=== PATIENT | female | born 1990 | race African-American/Black ===

== ENCOUNTER 2020-07-10 12:50 | Emergency (ER) | payer MEDICAID ==
[~2020-07-10] VITALS: Ht 154.9 cm; Wt 97.0 kg
[2020-07-10] MEDS ORDERED: PANTOPRAZOLE 40MG DR TABLET PO ONE (14:30)
[2020-07-10 16:13] LABS: EOSINOPHILS % 1.3 % (0.0-5.0); HEMOGLOBIN. 14.3 g/dL (12.0-16.0); LYMPHOCYTES % 35.1 % (20.0-50.0); MEAN CORPUSCULAR HEMOGLOBIN 28.8 pg (28.0-32.0); MEAN CORPUSCULAR VOLUME 86.4 fL (81.0-99.0); MEAN PLATELET VOLUME 7.2 fl (7.4-10.4); MONOCYTES % 4.2 % (2.0-8.0); NEUTROPHILS % 58.4 % (40.0-76.0); PLATELET 442 x1000/uL (130-400); RED BLOOD CELL COUNT 4.98 mill/uL (4.2-5.4); RED CELL DISTRIBUTION WIDTH 14.2 % (11.6-14.6)
[2020-07-10 16:19] LABS: CHLORIDE 105 mEq/L (98-107)
[2020-07-10 16:30] VITALS: BP 161/91
[2020-07-10 17:24] LABS: HCG SCREEN NEGATIVE
== END 2020-07-10 18:20 | disposition home or self-care (01) ==
LOC: ER 13:11
DX: R07.89 Other chest pain (principal); K21.9 Gastro-esophageal reflux disease without esophagitis
CPT/HCPCS: 36415; 71045; 80053; 81025; 84484; 84703; 85025; 93005; 99285

== ENCOUNTER 2021-04-10 04:31 | Emergency (ER) | payer MEDICAID ==
[~2021-04-10] VITALS: Ht 152.4 cm; Wt 93.0 kg
[2021-04-10] MEDS ORDERED: ACETAMINOPHEN 500MG TABLET PO ONE (05:00)
[2021-04-10 06:12] VITALS: BP 129/87
== END 2021-04-10 06:16 | disposition home or self-care (01) ==
LOC: ER 04:31
DX: R50.9 Fever, unspecified (principal); R05 Cough; J06.9 Acute upper respiratory infection, unspecified; Z20.822 Contact with and (suspected) exposure to COVID-19
CPT/HCPCS: 71045; 99284; C9803; U0003; U0005; Z7610

== ENCOUNTER 2021-04-12 10:57 | Emergency (ER) | payer MEDICAID ==
[~2021-04-12] VITALS: Ht 162.6 cm; Wt 92.0 kg
[2021-04-12] MEDS ORDERED: MOBI7 MT ×2 (12:41→14:07)
[2021-04-12] MEDS ORDERED: KETOROLAC 60MG/2ML VIAL IM ONE (12:45)
[2021-04-12 13:12] VITALS: BP 152/83
== END 2021-04-12 13:22 | disposition home or self-care (01) ==
LOC: ER 10:57
DX: M79.18 Myalgia, other site (principal); U07.1 COVID-19
CPT/HCPCS: 96372; 99283; J1885

== ENCOUNTER 2021-08-23 13:11 | Emergency (ER) | payer MEDICAID ==
[~2021-08-23] VITALS: Ht 165.1 cm; Wt 96.0 kg
[~2021-08-23 13:11] MED LIST: MOBI7 MT
[2021-08-23 13:19] VITALS: BP 153/98
[2021-08-23] MEDS ORDERED: KETOROLAC 30MG/ML VIAL IM NR (13:30)
[2021-08-23] MEDS ORDERED: HYDROCODONE/ACETAMINOPHEN 5/325MG TABLET PO NR (13:30)
[2021-08-23] MEDS ORDERED: ACETAMINOPHEN 325MG TABLET PO ONE (13:45)
== END 2021-08-23 14:55 | disposition home or self-care (01) ==
LOC: ER 13:11
DX: R07.89 Other chest pain (principal); I10 Essential (primary) hypertension; Z88.1 Allergy status to other antibiotic agents; V43.52XA Car driver injured in collision with other type car in traffic accident, initial encounter; Y93.89 Activity, other specified; Y92.488 Other paved roadways as the place of occurrence of the external cause
CPT/HCPCS: 71045; 72040; 81025; 99284; Z7610

== ENCOUNTER 2021-11-14 19:35 | Emergency (ER) | payer MEDICAID ==
[~2021-11-14] VITALS: Ht 165.1 cm; Wt 95.0 kg
[2021-11-14 19:42] VITALS: BP 170/112
[2021-11-14] MEDS ORDERED: ACETAMINOPHEN 325MG TABLET PO ONE (23:30)
[2021-11-14 23:48] LABS: CLARITY URINE CLOUDY (CLEAR); COLOR URINE YELLOW (YELLOW); KETONES URINE TRACE (NEGATIVE); LEUKOCYTE ESTERASE URINE 3+ (NEGATIVE); NITRITE URINE NEGATIVE (NEGATIVE); OCCULT BLOOD URINE NEGATIVE (NEGATIVE); PH URINE 5.5 (4.5-8.0); PROTEIN URINE TRACE (NEGATIVE); SPECIFIC GRAVITY URINE 1.023 (1.005-1.030)
[2021-11-15] MEDS ORDERED: CEFTRIAXONE SODIUM 500 MG/VIAL IM ONE (00:30)
[2021-11-15] MEDS ORDERED: LIDOCAINE HCL 1% 20ML VIAL (Pyxis) INJ INFIL ONE (00:30)
[2021-11-15] MEDS ORDERED: LIDOCAINE HCL 1% 10 MG/ML 10ML VIAL INJ NR (00:45)
[2021-11-15] MEDS ORDERED: DOXY100T2 MT (00:46)
[2021-11-15] MEDS ORDERED: METR500T MT (00:46)
[2021-11-15] MEDS ORDERED: NITR-87 MT (00:47)
[2021-11-19 04:09] LABS: NEISSERIA GONORRHOEAE NAA Negative (Negative)
== END 2021-11-15 01:01 | disposition home or self-care (01) ==
LOC: ER 19:35
DX: R30.0 Dysuria (principal); A64 Unspecified sexually transmitted disease; N39.0 Urinary tract infection, site not specified
CPT/HCPCS: 81003; 81025; 87086; 87210; 87491; 87591; 96372; 99283; J0696; J3490

== ENCOUNTER 2022-03-17 20:03 | Emergency (ER) | payer MEDICAID ==
[~2022-03-17] VITALS: Ht 165.1 cm; Wt 92.5 kg
[~2022-03-17 20:03] MED LIST changes: +DOXY100T2 MT; +METR500T MT; +NITR-87 MT
[2022-03-17] MEDS ORDERED: IBUPROFEN 600MG TABLET PO STA (22:36)
[2022-03-17] MEDS ORDERED: CEFTRIAXONE 1 G PREMIX 50 ML IV ONE (22:45)
[2022-03-17] MEDS ORDERED: AZITHROMYCIN 500MG/250ML 250 ML IV ONE (22:45)
[2022-03-17 23:14] LABS: CLARITY URINE CLEAR (CLEAR); COLOR URINE DARK YELLOW (YELLOW); KETONES URINE TRACE (NEGATIVE); LEUKOCYTE ESTERASE URINE TRACE (NEGATIVE); NITRITE URINE NEGATIVE (NEGATIVE); OCCULT BLOOD URINE NEGATIVE (NEGATIVE); PROTEIN URINE 1+ (NEGATIVE); SPECIFIC GRAVITY URINE 1.034 (1.005-1.030)
[2022-03-17 23:28] LABS: BASOPHILS % 0.3 % (0.0-2.0); EOSINOPHILS % 0.2 % (0.0-5.0); HEMATOCRIT. 37.8 % (36.0-48.0); HEMOGLOBIN. 12.7 g/dL (12.0-16.0); LYMPHOCYTES % 16.1 % (20.0-50.0); MEAN CORPUSCULAR HEMOGLOBIN 28.6 pg (28.0-32.0); MEAN CORPUSCULAR VOLUME 85.4 fL (81.0-99.0); MEAN PLATELET VOLUME 7.1 fl (7.4-10.4); MONOCYTES % 6.8 % (2.0-8.0); NEUTROPHILS % 76.6 % (40.0-76.0); PLATELET 412 x1000/uL (130-400); RED BLOOD CELL COUNT 4.43 mill/uL (4.2-5.4); RED CELL DISTRIBUTION WIDTH 14.2 % (11.6-14.6)
[2022-03-17 23:42] LABS: CHLORIDE 104 mEq/L (98-107)
[2022-03-18 02:57] VITALS: BP 148/88
== END 2022-03-18 02:58 | disposition home or self-care (01) ==
LOC: ER 20:03
DX: B34.9 Viral infection, unspecified (principal); Z86.16 Personal history of COVID-19; Z20.822 Contact with and (suspected) exposure to COVID-19
CPT/HCPCS: 36415; 71045; 80053; 81003; 83605; 84145; 85025; 87040; 87426; 87804; 93005; 96365; 96368; 99285; J0456; J0696

== ENCOUNTER 2022-05-24 22:13 | Emergency (ER) | payer MEDICAID ==
[~2022-05-24] VITALS: Ht 165.1 cm; Wt 79.0 kg
[2022-05-24 22:26] VITALS: BP 155/98
[2022-05-25 00:56] LABS: CLARITY URINE TURBID (CLEAR); COLOR URINE RED (YELLOW); KETONES URINE NEGATIVE (NEGATIVE); LEUKOCYTE ESTERASE URINE 3+ (NEGATIVE); NITRITE URINE POSITIVE (NEGATIVE); OCCULT BLOOD URINE 1+ (NEGATIVE); PROTEIN URINE 2+ (NEGATIVE); SPECIFIC GRAVITY URINE 1.022 (1.005-1.030); UROBILINOGEN URINE 0.2 E.U./dL (0.2-1.0)
[2022-05-25] MEDS ORDERED: PYR200 PO (01:55)
[2022-05-25] MEDS ORDERED: NAPR-681 PO (01:55)
[2022-05-25] MEDS ORDERED: SULF1TAB48 PO (01:55)
[2022-05-25] MEDS ORDERED: MELO-104 PO (02:08)
== END 2022-05-25 02:14 | disposition home or self-care (01) ==
LOC: ER 22:13
DX: N39.0 Urinary tract infection, site not specified (principal); R30.0 Dysuria; R35.0 Frequency of micturition
CPT/HCPCS: 81003; 81025; 99283

== ENCOUNTER 2022-05-28 18:26 | Emergency (ER) | payer MEDICAID ==
[~2022-05-28] VITALS: Ht 167.6 cm; Wt 77.0 kg
[~2022-05-28 18:26] MED LIST changes: +MELO-104 PO; +PYR200 PO; +SULF1TAB48 PO
[2022-05-28 18:29] VITALS: BP 179/125
[2022-05-28] MEDS ORDERED: NITR100C PO (21:12)
[2022-05-28] MEDS ORDERED: SODIUM CHLORIDE 0.9% 1,000 ML IV ONE (22:00)
[2022-05-28 22:50] LABS: CHLORIDE 107 mEq/L (98-107)
[2022-05-28 22:51] LABS: HCG SCREEN NEGATIVE
[2022-05-28 23:20] LABS: BASOPHILS % 1.1 % (0.0-2.0); EOSINOPHILS % 3.6 % (0.0-5.0); HEMATOCRIT. 34.7 % (36.0-48.0); HEMOGLOBIN. 11.3 g/dL (12.0-16.0); LYMPHOCYTES % 34.7 % (20.0-50.0); MEAN CORPUSCULAR HEMOGLOBIN 27.5 pg (28.0-32.0); MEAN CORPUSCULAR VOLUME 84.5 fL (81.0-99.0); MONOCYTES % 8.9 % (2.0-8.0); NEUTROPHILS % 51.7 % (40.0-76.0); PLATELET 464 x1000/uL (130-400); RED BLOOD CELL COUNT 4.11 mill/uL (4.2-5.4); RED CELL DISTRIBUTION WIDTH 13.9 % (11.6-14.6)
[2022-05-29] MEDS ORDERED: ONDA4TAB50 MT (00:24)
== END 2022-05-29 00:52 | disposition home or self-care (01) ==
LOC: ER 18:26
DX: N39.0 Urinary tract infection, site not specified (principal); R11.2 Nausea with vomiting, unspecified; R30.0 Dysuria; Z79.899 Other long term (current) drug therapy
CPT/HCPCS: 36415; 80048; 84703; 85025; 96360; 99283; J7030